=== PATIENT | female | born 1940 | race Caucasian/White ===

== ENCOUNTER 2017-08-05 12:02 | Observation (INO) | payer OTHER, MEDICAID ==
[2017-08-05] VITALS (9 sets, daily range): BP systolic 110–144; BP diastolic 60–82; PULSE 57–65; RESP 18–20; TEMP 96.9–97.4; O2SAT 95–99
[~2017-08-05] VITALS: Ht 167.6 cm; Wt 41.8 kg
[~2017-08-05 12:02] MED LIST: ADVA250A INH; ALBU6.7H INH; ASPI81 PO; CART240C4 PO; CITRTAB7 PO; DILT240C7 PO; GABA100C4 PO; IPRA0.02 INH; LEVO.125 PO; LISI-363 PO; METR-1 PO; MIRTA15 PO; PRAV20TA67 PO; TAB-TAB PO; VITA10002 PO; VITA100L SUCK-ON
--- NOTE | 2017-08-05 12:20 | PD ---
HPI Chief Complaint: Chest Pain Time Seen by Provider: 12:19 Travel History International Travel<30 days: No Contact w/Intl Traveler<30days: No Traveled to known affect area: No History of Present Illness HPI 77-year-old female came to the emergency room with history of substernal chest pain/discomfort radiating to left side of her chest under the breast for past 3 days. Patient says it is on and off. The pain is not severe but instead like a dull discomfort but enough to make her aware of its presence. She tried calling her mattress stripper office this morning but was told that mattress stripper is out of town. Patient decided to come to the emergency room. She says that she has been getting this discomfort frequently lately. She has not been evaluated for coronary artery disease. Vital signs were stable. Patient says currently she just has a little bit of tightness in her chest. No associated shortness of breath. Vital signs otherwise stable. Patient has never had history of coronary artery disease or any stents put in her bypass. She took one of 81 mg aspirin this morning. No aggravating or relieving factors identified. Patient has history of hypertension, cholesterol and prediabetes. [facility] Past Medical History Narrative Medical List of her past medical, surgical, social and family history reviewed from the nursing note Arthritis: Yes Asthma: Yes Anxiety: Yes Depression: Yes Heart Rhythm Problems: Yes (PALPITATIONS) Cancer: Yes (BREAST) Cardiac Catheterization: No Cardiovascular Problems: Yes High Cholesterol: Yes Chest Pain: Yes Congestive Heart Failure: No COPD: Yes Cerebrovascular Accident: No Coronary Artery Disease: Yes Diabetes: No Endocrine: No Gastrointestinal Disorders: Yes GERD: Yes Glaucoma: No Genitourinary: No Hepatitis: No Hiatal Hernia: No Hypertension: Yes Immune Disorder: No Musculoskeletal: Yes Neurologic: Yes Psychiatric: Yes Reproductive: No Respiratory: Yes Radiation Therapy: Yes Sleep Apnea: No Thyroid Disease: Yes PNEUMOCCOCAL Vaccine (Year): 1 : 3 Para: 2 Miscarriage: 1 Past Surgical History Abdominal Surgery: Yes (OPEN CHOLECYSTECTOMY, APPENDECTOMY) Appendectomy: Yes Cardiac Surgery: No Cholecystectomy: Yes Coronary Artery Bypass Graft: No Ear Surgery: No Endocrine Surgery: Yes Eye Surgery: No Genitourinary Surgery: No Gynecologic Surgery: Yes (HYSTERECTOMY) Hysterectomy: Yes Oral Surgery: No Pacemaker: No Thoracic Surgery: No Other Surgery: Yes Social History Alcohol Use: No Tobacco Use: No (QUIT 30 YRS) Substance Use: No Allergies-Medications (Allergen,Severity, Reaction): Coded Allergies: morphine (Unverified Allergy, Severe, rash, 09/25/16) Comments List of her allergies reviewed from the nursing note. Reported Meds & Prescriptions Reported Meds & Active Scripts Active Reported Levothyroxine (Levothyroxine Sodium) 100 Mcg Tab 100 Mcg PO DAILY Lisinopril-Hctz 20-12.5 Mg Tab 1 Tab PO DAILY Pravastatin 20 Mg Tab 20 Mg PO DAILY Diltiazem CD 24 HR 240 Mg Caper 240 Mg PO DAILY Aspirin 81 Mg Chew 81 Mg CHEW DAILY Pantoprazole (Pantoprazole Sodium) 40 Mg Tab 40 Mg PO DAILY Advair Diskus Inh (Fluticasone-Salmeterol Inh) 100-50 Mcg/Blist Aer 1 Puff INH BID Rinse mouth after use. Ipratropium Neb (Ipratropium [place]) 0.5 Mg/2.5 Ml Amp 0.5 Mg NEB Q6HR NEB PRN Proventil Hfa 6.7 GM Inh (Albuterol Sulfate) 90 Mcg/Act Aer 2 Puff INH Q6H PRN Narrative Medication List of her home medications reviewed from the nursing note. Review of Systems Except as stated in HPI: all other systems reviewed are Neg Cardiovascular: Positive: Chest Pain or Discomfort Physical Exam Narrative GENERAL: Awake, alert, no obvious distress, elderly SKIN: Focused skin assessment warm/dry. HEAD: Atraumatic. Normocephalic. EYES: Pupils equal and round. No scleral icterus. No injection or drainage. ENT: No nasal bleeding or discharge. Mucous membranes pink and moist. NECK: Trachea midline. No JVD. CARDIOVASCULAR: Regular rate and rhythm. No murmur appreciated. RESPIRATORY: No accessory muscle use. Clear to auscultation. Breath sounds equal bilaterally. GASTROINTESTINAL: Abdomen soft, non-tender, nondistended. Hepatic and splenic margins not palpable. MUSCULOSKELETAL: No obvious deformities. No clubbing. No cyanosis. No edema. NEUROLOGICAL: Awake and alert. No obvious cranial nerve deficits. Motor grossly within normal limits. Normal speech. PSYCHIATRIC: Appropriate mood and affect; insight and judgment normal. Data Data Last Documented VS Vital Signs Date Time Temp Pulse Resp B/P (MAP) Pulse Ox O2 Delivery O2 Flow Rate FiO2 08/05/17 13:00 20 98 Room Air 08/05/17 12:58 133/76 (95) 144/70 (94) 08/05/17 12:05 97.4 60 Orders Orders Electrocardiogram (08/05/17 12:41) Basic Metabolic Panel (Bmp) (08/05/17 12:41) Ckmb (Isoenzyme) Profile (08/05/17 12:41) Complete Blood Count With Diff (08/05/17 12:41) Magnesium (Mg) (08/05/17 12:41) Prothrombin Time / Inr (Pt) (08/05/17 12:41) Act Partial Throm Time (Ptt) (08/05/17 12:41) Troponin I (08/05/17 12:41) Ecg Monitoring (08/05/17 12:41) Bilateral Bp Monitoring (08/05/17 12:41) Iv Access Insert/Monitor (08/05/17 12:41) Oximetry (08/05/17 12:41) Oxygen Administration (08/05/17 12:41) Aspirin Chew (Aspirin Chew) (08/05/17 12:45) Sodium Chloride 0.9% Flush (Ns Flush) (08/05/17 12:45) Chest, Pa & Lat (08/05/17 12:41) Admit Order (Ed Use Only) (08/05/17 13:33) Labs Laboratory Tests Test 08/05/17 12:40 White Blood Count 6.2 TH/MM3 Red Blood Count 4.07 MIL/MM3 Hemoglobin 12.7 GM/DL Hematocrit 38.4 % Mean Corpuscular Volume 94.3 FL Mean Corpuscular Hemoglobin 31.3 PG Mean Corpuscular Hemoglobin Concent 33.2 % Red Cell Distribution Width 12.4 % Platelet Count 105 TH/MM3 Mean Platelet Volume 11.6 FL Neutrophils (%) (Auto) 63.7 % Lymphocytes (%) (Auto) 23.2 % Monocytes (%) (Auto) 8.7 % Eosinophils (%) (Auto) 3.3 % Basophils (%) (Auto) 1.1 % Neutrophils # (Auto) 4.0 TH/MM3 Lymphocytes # (Auto) 1.4 TH/MM3 Monocytes # (Auto) 0.5 TH/MM3 Eosinophils # (Auto) 0.2 TH/MM3 Basophils # (Auto) 0.1 TH/MM3 CBC Comment DIFF FINAL Differential Comment Prothrombin Time 10.4 SEC Prothromb Time International Ratio 1.0 RATIO Activated Partial Thromboplast Time 26.7 SEC Blood Urea Nitrogen 28 MG/DL Creatinine 1.20 MG/DL Random Glucose 97 MG/DL Calcium Level 9.0 MG/DL Magnesium Level 2.2 MG/DL Sodium Level 139 MEQ/L Potassium Level 3.4 MEQ/L Chloride Level 99 MEQ/L Carbon Dioxide Level 31.8 MEQ/L Anion Gap 8 MEQ/L Estimat Glomerular Filtration Rate 43 ML/MIN Total Creatine Kinase 59 U/L Troponin I LESS THAN 0.02 NG/ML MDM Medical Decision Making Medical Screen Exam Complete: Yes Emergency Medical Condition: Yes Medical Record Reviewed: Yes Interpretation(s) Twelve-lead EKG was reviewed by me. Normal sinus rhythm, low voltage, inferior T-wave inversions, questionable old anterior SC. Heart rate of 62 bpm. Differential Diagnosis ACS, non-STEMI, nonspecific chest pain. Narrative Course 1:16 PM patient was given 81 mg of aspirin. Awaiting for blood test results and chest x-ray. She will need chest pain admission to rule out ACS at the least. Procedures EKG Prior to Arrival: No Diagnosis Primary Impression: Chest pain Qualified Codes: R07.9 - Chest pain, unspecified Admitting Information Admitting Physician Requests: Observation Tricia Doty MD Aug 05, 2017 12:20
[2017-08-05] MEDS ORDERED: ASPIRIN 81 MG CHEW TAB PO ONE (12:45)
[2017-08-05] MEDS ORDERED: SODIUM CHLORIDE 0.9% FLUSH 10 ML FLUSH IVF PRN (12:45)
[2017-08-05 12:53] LABS: BASOPHIL # 0.1 TH/MM3 (0-0.2); BASOPHIL % 1.1 % (0.0-2.0); EOSINOPHIL # 0.2 TH/MM3 (0-0.4); EOSINOPHIL % 3.3 % (0.0-4.0); HEMATOCRIT 38.4 % (35.0-46.0); HEMOGLOBIN 12.7 GM/DL (11.6-15.3); LYMPH % 23.2 % (9.0-44.0); LYMPHOCYTE # 1.4 TH/MM3 (1.0-4.8); MEAN CELL VOLUME 94.3 FL (80.0-100.0); MEAN CORPUSCULAR HEMOGLOBIN 31.3 PG (27.0-34.0); MEAN CORPUSCULAR HGB CONC 33.2 % (32.0-36.0); MEAN PLATELET VOLUME 11.6 FL (7.0-11.0); MONO % 8.7 % (0.0-8.0); MONOCYTE # 0.5 TH/MM3 (0-0.9); NEUT % 63.7 % (16.0-70.0); PLATELET COUNT 105 TH/MM3 (150-450); RED BLOOD COUNT 4.07 MIL/MM3 (4.00-5.30); RED CELL DISTRIBUTION WIDTH 12.4 % (11.6-17.2); WHITE BLOOD COUNT 6.2 TH/MM3 (4.0-11.0)
[2017-08-05 13:01] LABS: CHLORIDE 99 MEQ/L (98-107); SODIUM (NA) 139 MEQ/L (136-145)
[2017-08-05 13:05] LABS: BICARBONATE 31.8 MEQ/L (21.0-32.0); BLOOD UREA NITROGEN 28 MG/DL (7-18); GLUCOSE,RANDOM 97 MG/DL (74-106); MAGNESIUM 2.2 MG/DL (1.5-2.5)
[2017-08-05 13:07] LABS: PROTHROMBIN TIME - PATIENT 10.4 SEC (9.8-11.6)
[2017-08-05 13:08] LABS: GLOMERULAR FILTRATION RATE 43 ML/MIN (>89)
[2017-08-05 13:13] LABS: TROPONIN I LESS THAN 0.02 NG/ML (0.02-0.05)
[2017-08-05] MEDS ORDERED: ONDANSETRON HCL 4 MG/2 ML VIAL IV PUSH PRN (14:00)
[2017-08-05] MEDS ORDERED: NITROGLYCERIN 0.4 MG SL 25 TABS/BTL SL PRN (14:00)
[2017-08-05] MEDS ORDERED: ACETAMINOPHEN 500 MG CPLT PO PRN (14:00)
[2017-08-05] MEDS ORDERED: SODIUM CHLORIDE 0.9% FLUSH 10 ML FLUSH IV FLUSH PRN (14:00)
--- NOTE | 2017-08-05 14:00 | RADRPT ---
EXAM DATE: 08/05/2017 1:46 PM EDT AGE/SEX: 77 years / Female INDICATIONS: Tightness in chest. CLINICAL DATA: This is the patient's initial encounter. Patient reports that signs and symptoms have been present for 2 days and indicates a pain score of 0/10. MEDICAL/SURGICAL HISTORY: Carcinoma, breast. Emphysema. Chronic obstructive pulmonary disease . Hypertension. Appendectomy. Cholecystectomy. Hysterectomy. COMPARISON: No prior exams available for comparison. FINDINGS: Marked hyperinflation. No infiltrate or congestive failure. No pneumothorax. Mild thoracolumbar scoli osis. CONCLUSION: Marked hyperinflation. Electronically signed by: Jason Bourgeois MD 08/05/2017 1:59 PM EDT
[2017-08-05] MEDS ORDERED: IPRA0.02 NEB (14:12)
[2017-08-05] MEDS ORDERED: DILT240C44 PO (14:12)
[2017-08-05] MEDS ORDERED: LEVO100T5 PO (14:12)
[2017-08-05] MEDS ORDERED: LISI20TA PO (14:12)
[2017-08-05] MEDS ORDERED: ADVA100A INH (14:12)
[2017-08-05] MEDS ORDERED: PRAV20TA2 PO (14:12)
[2017-08-05] MEDS ORDERED: ASPI-516 CHEW (14:12)
[2017-08-05] MEDS ORDERED: PANT40TA3 PO (14:12)
[2017-08-05] MEDS ORDERED: ALBU6.7H INH (14:12)
--- NOTE | 2017-08-05 15:15 | EKG ---
Date Performed: 08/05/2017 Time Performed: 12:12:39 PTAGE: 77 years EKG: Sinus rhythm WITH SINUS ARRHYTHMIA ANTEROSEPTAL MYOCARDIAL INFARCTION ABNORMAL ECG No significant change from lorin or electrocardiogram. PREVIOUS TRACING : 12/30/2013 00.29 DOCTOR: Sebastián Ramsay Interpretating Date/Time 08/05/2017 15:14:17
[2017-08-05 16:28] LABS: TROPONIN I LESS THAN 0.02 NG/ML (0.02-0.05)
--- NOTE | 2017-08-05 16:48 | HHI.HP ---
[facility] aRjni Patel, DO Admission Diagnosis Chest pain, rule out ACS Diagnoses: (1) Chest pain Diagnosis: Principal Chief Complaint: Chest pain Travel History International Travel<30 Days: No Contact w/Intl Traveler <30 Da: No Traveled to Known Affected Are: No History of Present Illness 77-year-old female known history of hypertension, hyperkalemia, chronic obstructive pulmonary disease, hypothyroidism, gastroesophageal reflux who presented to hospital because of chest pain. Patient states that her chest pain started on Saturday which was 3 days ago. She states that it is described as a tightness type discomfort in her chest without any radiation to the neck, back, shoulder, arm. Patient states that the pain has been persistent since Saturday on a scale of 6/10 with episodic worsening to a 8/10. It is not worsened with exertion. Is not improved with rest. He denied any nausea, vomiting, shortness of breath, dizziness. Patient does follow up with Dr. Langford. She did try to call Dr. Langford's office today however she is out of town. The office told her to go to the emergency department for evaluation. Patient had workup done emergency department and was essentially unremarkable in the ER physician recommend the patient be observed in the chest pain center. Patient has had previous cardiac workup with cardiac stress test done in 2013 at that time patient had unremarkable myocardial perfusion study with low risk. Review of Systems Cardiovascular: COMPLAINS OF: Chest pain Except as stated in HPI: all other systems reviewed are Neg Past Family Social History Past Medical History Hypertension Hyperlipidemia History of tobacco use Chronic obstructive pulmonary disease Chronic back pain Hypothyroidism History myocardial infarction Coronary artery disease History of breast cancer status post lumpectomy and radiation Anxiety/depression History of bowel obstruction Past Surgical History Right breast lumpectomy Surgery for bowel obstruction Cholecystectomy Appendectomy Total hysterectomy Tonsillectomy Reported Medications Reported Meds & Active Scripts Active Reported Levothyroxine (Levothyroxine Sodium) 100 Mcg Tab 100 Mcg PO DAILY Lisinopril-Hctz 20-12.5 Mg Tab 1 Tab PO DAILY Pravastatin 20 Mg Tab 20 Mg PO DAILY Diltiazem CD 24 HR 240 Mg Caper 240 Mg PO DAILY Aspirin 81 Mg Chew 81 Mg CHEW DAILY Pantoprazole (Pantoprazole Sodium) 40 Mg Tab 40 Mg PO DAILY Advair Diskus Inh (Fluticasone-Salmeterol Inh) 100-50 Mcg/Blist Aer 1 Puff INH BID Rinse mouth after use. Ipratropium Neb (Ipratropium [place]) 0.5 Mg/2.5 Ml Amp 0.5 Mg NEB Q6HR NEB PRN Proventil Hfa 6.7 GM Inh (Albuterol Sulfate) 90 Mcg/Act Aer 2 Puff INH Q6H PRN Allergies: Coded Allergies: morphine (Unverified Allergy, Severe, rash, 09/25/16) Family History Reviewed and significant for heart disease with mother having myocardial infarction, father with aneurysm Social History Patient quit smoking over 30 years ago, she does have a [id number] history. She denies any alcohol or illicit drugs Physical Exam Vital Signs Vital Signs Date Time Temp Pulse Resp B/P (MAP) Pulse Ox O2 Delivery O2 Flow Rate FiO2 08/05/17 13:00 20 98 Room Air 08/05/17 12:58 133/76 (95) 144/70 (94) 08/05/17 12:57 99 Room Air 08/05/17 12:55 99 Room Air 08/05/17 12:05 97.4 60 20 144/82 (102) 99 Physical Exam GENERAL: Well-developed, well-nourished, in no acute distress. alert and orientated HEENT: Head is normocephalic without any lesions or masses noted. Facial features are symmetric. Eyes: Pupils equal round reactive to light. Extraocular muscles are intact. Conjunctivae were clear. Oropharyngeal: Pharynx without any erythema edema. Tongue is midline without deviation. Buccal mucosa is moist without any masses or lesions NECK: Supple without any masses. Trachea midline no deviation. No JVD, no bruits are appreciated CARDIAC: Regular rhythm, regular rate. S1/S2 are heard. No murmurs gallops or rubs. LUNGS: Clear to auscultation bilaterally. No wheeze, rhonchi or rales. No use of accessory muscles on inspiration or expiration. ABDOMEN: Soft, nontender. Nondistended. Bowel sounds heard in all 4 quadrants. No organomegaly or masses. Negative rebound, negative guarding EXTREMITIES: No edema, pulses are equal bilaterally. No cyanosis or clubbing NEUROLOGY: Mood and affect appear appropriate. Cranial nerves II through XII grossly intact. Muscle strength 5/5 in upper and lower extremities bilaterally. Deep tendon reflexes are 2+ in upper and lower extremities bilaterally. Laboratory Laboratory Tests Test 08/05/17 12:40 08/05/17 15:55 White Blood Count 6.2 Red Blood Count 4.07 Hemoglobin 12.7 Hematocrit 38.4 Mean Corpuscular Volume 94.3 Mean Corpuscular Hemoglobin 31.3 Mean Corpuscular Hemoglobin Concent 33.2 Red Cell Distribution Width 12.4 Platelet Count 105 Mean Platelet Volume 11.6 Neutrophils (%) (Auto) 63.7 Lymphocytes (%) (Auto) 23.2 Monocytes (%) (Auto) 8.7 Eosinophils (%) (Auto) 3.3 Basophils (%) (Auto) 1.1 Neutrophils # (Auto) 4.0 Lymphocytes # (Auto) 1.4 Monocytes # (Auto) 0.5 Eosinophils # (Auto) 0.2 Basophils # (Auto) 0.1 CBC Comment DIFF FINAL Differential Comment Prothrombin Time 10.4 Prothromb Time International Ratio 1.0 Activated Partial Thromboplast Time 26.7 Blood Urea Nitrogen 28 Creatinine 1.20 Random Glucose 97 Calcium Level 9.0 Magnesium Level 2.2 Sodium Level 139 Potassium Level 3.4 Chloride Level 99 Carbon Dioxide Level 31.8 Anion Gap 8 Estimat Glomerular Filtration Rate 43 Total Creatine Kinase 59 52 Troponin I LESS THAN 0.02 LESS THAN 0.02 Result Diagram: 08/05/17 1240 08/05/17 1240 Imaging Last Impressions Chest X-Ray 08/05/17 1241 Signed Impressions: CONCLUSION: Marked hyperinflation. Caprini VTE Risk Assessment Caprini VTE Risk Assessment: Mod/High Risk (score >= 2) Caprini Risk Assessment Model Point Value = 1 Point Value = 2 Point Value = 3 Point Value = 5 Age 41-60 Minor surgery BMI > 25 kg/m2 Swollen legs Varicose veins or History of unexplained or recurrent spontaneous Oral contraceptives or hormone replacement Sepsis (< 1 month) Serious lung disease, including pneumonia (< 1 month) Abnormal pulmonary function Acute myocardial infarction Congestive heart failure (< 1 month) History of inflammatory bowel disease Medical patient at bed rest Age 61-74 Arthroscopic surgery Major open surgery (> 45 min) Laparoscopic surgery (> 45 min) Malignancy Confined to bed (> 72 hours) Immobilizing plaster cast Central venous access Age >= 75 History of VTE Family history of VTE Factor V Leiden Prothrombin [id number] Lupus anticoagulant Anticardiolipin antibodies Elevated serum homocysteine Heparin-induced thrombocytopenia Other congenital or acquired thrombophilia Stroke (< 1 month) Elective arthroplasty Hip, pelvis, or leg fracture Acute spinal cord injury (< 1 month) Prophylaxis Regimen Total Risk Factor Score Risk Level Prophylaxis Regimen 0-1 Low Early ambulation 2 Moderate Order ONE of the following: *Sequential Compression Device (SCD) *Heparin 5000 units SQ BID 3-4 Higher Order ONE of the following medications: *Heparin 5000 units SQ TID *Enoxaparin/Lovenox 40 mg SQ daily (WT < 150 kg, CrCl > 30 mL/min) *Enoxaparin/Lovenox 30 mg SQ daily (WT < 150 kg, CrCl > 10-29 mL/min) *Enoxaparin/Lovenox 30 mg SQ BID (WT < 150 kg, CrCl > 30 mL/min) AND/OR *Sequential Compression Device (SCD) 5 or more Highest Order ONE of the following medications: *Heparin 5000 units SQ TID (Preferred with Epidurals) *Enoxaparin/Lovenox 40 mg SQ daily (WT < 150 kg, CrCl > 30 mL/min) *Enoxaparin/Lovenox 30 mg SQ daily (WT < 150 kg, CrCl > 10-29 mL/min) *Enoxaparin/Lovenox 30 mg SQ BID (WT < 150 kg, CrCl > 30 mL/min) AND *Sequential Compression Device (SCD) Assessment and Plan Assessment and Plan Atypical chest pain -Patient does have increased risk factors to include age, female without exogenous hormones, hypertension, hyper lipidemia, coronary artery disease, family history of heart disease, history of tobacco use -We will continue ruled the patient out for acute coronary event with serial cardiac enzymes which thus far are negative -Serial EKGs are reviewed by myself does indicate sinus rhythm with sinus arrhythmia without any change from previous EKG from 2013 -We will pursue myocardial perfusion study to rule out any underlying ischemia -Continue aspirin -Continue monitoring telemetry Hypertension, hypovolemia, coronary artery disease -Continue home medications Chronic obstructive pulmonary disease -May use O2 to maintain O2 sats greater than 80% -Duo nebs as needed Hypothyroidism -Replacement therapy has been continued DVT prevention -Sequential compression devices Problem Qualifiers (1) Chest pain: Qualified Codes: R07.9 - Chest pain, unspecified Lukasz Oakley Aug 05, 2017 16:48
[2017-08-05 19:30] LABS: TROPONIN I LESS THAN 0.02 NG/ML (0.02-0.05)
[2017-08-05] MEDS: RESP: ALBUTEROL 2.5 MG/IPRATROPIUM 0.5 MG NEB (PRN) NEB (19:55)
[2017-08-05] MEDS ORDERED: PRAVASTATIN SOD 20 MG TAB PO SCH (21:00)
--- NOTE | 2017-08-05 21:21 | EKG ---
Date Performed: 08/05/2017 Time Performed: 18:55:09 PTAGE: 77 years EKG: Baseline artifact present SINUS BRADYCARDIA WITH FIRST DEGREE AV BLOCK ANTEROSEPTAL MYOCARD IAL INFARCTION ABNORMAL ECG No significant change from prior electrocardiogram. PREVIOUS TRACING : 08/05/2017 15.52 DOCTOR: Sebastián Ramsay Interpretating Date/Time 08/05/2017 21:21:11
--- NOTE | 2017-08-05 21:28 | EKG ---
Date Performed: 08/05/2017 Time Performed: 15:52:35 PTAGE: 77 years EKG: Baseline artifact present Sinus rhythm POSSIBLE SEPTAL MYOCARDIAL INFARCTION ABNORMAL ECG No significant change from prior electrocardiogra m. PREVIOUS TRACING : 08/05/2017 12.12 DOCTOR: Sebastián Ramsay Interpretating Date/Time 08/05/2017 21:28:05
[2017-08-05] MEDS ORDERED: ALUMINUM/MAGNESIUM/SIMETH 30 ML CUP PO PRN (21:30)
[2017-08-05] MEDS: SODIUM CHLORIDE 0.9% FLUSH 10 ML FLUSH IV FLUSH SCH (22:06)
[2017-08-06] VITALS: BP 111/67; PULSE 60; RESP 18; TEMP 96.5; O2SAT 93
[2017-08-06] MEDS: RESP: ALBUTEROL 2.5 MG/IPRATROPIUM 0.5 MG NEB (PRN) NEB (02:35)
[2017-08-06 04:00] VITALS: BP 123/56; PULSE 64; RESP 18; TEMP 96.8; O2SAT 96
[2017-08-06] MEDS ORDERED: LEVOTHYROXINE SODIUM 100 MCG TAB PO SCH (06:00)
[2017-08-06 07:30] VITALS: BP 118/65; PULSE 59; RESP 20; TEMP 96.5; O2SAT 96
[2017-08-06 08:40] VITALS: O2SAT 94
[2017-08-06] MEDS ORDERED: PANTOPRAZOLE SOD 40 MG DELAYED RELEASE TAB PO SCH (09:00)
[2017-08-06] MEDS ORDERED: DILTIAZEM-CD 240 MG CAP ER PO SCH (09:00)
[2017-08-06] MEDS ORDERED: LISINOPRIL 20 MG TAB PO SCH (09:00)
[2017-08-06] MEDS ORDERED: PRAVASTATIN SOD 20 MG TAB PO SCH (09:00)
[2017-08-06] MEDS ORDERED: NON-FORMULARY DRUG (Lisinopril-Hctz 1 TAB) PO SCH (09:00)
[2017-08-06] MEDS ORDERED: ASPIRIN 325 MG TAB PO SCH (09:00)
[2017-08-06] MEDS ORDERED: HYDROCHLOROTHIAZIDE 25 MG TAB PO SCH (09:00)
--- NOTE | 2017-08-06 09:19 | HHI.PR ---
Subjective Remarks Follow-up chest pain. Patient seen and examined, lying in bed comfortably in no apparent distress. Status post Lexiscan. Results reviewed with patient, no ischemia present on test. EF normal. Patient will be allowed to eat and discharge home. All symptoms have resolved. Denies any further chest pain. Denies any shortness of breath. Vital signs stable. Afebrile. Follow-up with PCP cardiology. Objective Vitals Vital Signs Date Time Temp Pulse Resp B/P (MAP) Pulse Ox O2 Delivery O2 Flow Rate FiO2 08/06/17 08:40 94 21 08/06/17 07:30 96.5 59 20 118/65 (82) 96 08/06/17 04:00 96.8 64 18 123/56 (78) 96 08/06/17 00:00 96.5 60 18 111/67 (82) 93 08/05/17 20:55 61 08/05/17 20:00 96.9 58 18 110/60 (77) 96 08/05/17 19:55 97 21 08/05/17 18:00 97.2 65 18 118/62 (80) 95 08/05/17 18:00 97.2 65 18 118/62 (80) 95 08/05/17 17:34 98 21 08/05/17 17:24 57 08/05/17 13:00 20 98 Room Air 08/05/17 12:58 133/76 (95) 144/70 (94) 08/05/17 12:57 99 Room Air 08/05/17 12:55 99 Room Air 08/05/17 12:05 97.4 60 20 144/82 (102) 99 I/O 08/05/17 08/05/17 08/05/17 08/06/17 08/06/17 08/06/17 07:00 15:00 23:00 07:00 15:00 23:00 Intake Total 160 ml 485 ml Balance 160 ml 485 ml Intake Oral 160 ml 485 ml # Voids 4 Result Diagram: 08/05/17 1240 08/05/17 1240 Imaging Last Impressions Myocardial Perfusion Scan Nuc Med 08/06/17 0600 Signed Impressions: CONCLUSION: Negative examination. Chest X-Ray 08/05/17 1241 Signed Impressions: CONCLUSION: Marked hyperinflation. Objective Remarks GENERAL: Well-developed, thin elderly female patient in NAD. SKIN: Warm and dry. No rash. HEAD: Normocephalic. Atraumatic. EYES: Pupils equal and round. No scleral icterus. No injection or drainage. ENT: No nasal bleeding or discharge. Mucous membranes pink and moist. NECK: Supple. Trachea midline. CARDIOVASCULAR: Regular rate and rhythm. S1, S2 noted. No murmur appreciated. No chest pain to palpation RESPIRATORY: No accessory muscle use. Clear to auscultation. Breath sounds equal bilaterally. GASTROINTESTINAL: Abdomen soft, non-tender, nondistended. Normoactive bowel sounds x4. MUSCULOSKELETAL: No obvious deformities. Extremities without clubbing, cyanosis , or edema. NEUROLOGICAL: Awake and alert. No obvious cranial nerve deficits. Motor grossly within normal limits. 5/5 muscle strength in bilateral upper and lower extremities. Normal speech. PSYCHIATRIC: Appropriate mood and affect; insight and judgment normal. A/P Problem List: (1) Chest pain ICD Code: R07.9 - Chest pain Status: Acute Assessment and Plan Atypical chest pain -Patient does have increased risk factors to include age, female without exogenous hormones, hypertension, hyper lipidemia, coronary artery disease, family history of heart disease, history of tobacco use -ACS ruled out with serial cardiac enzymes. -Serial EKGs reviewed does indicate sinus rhythm with sinus arrhythmia without any change from previous EKG from 2014. -Patient underwent myocardial perfusion scan, results reviewed showing EF of 70% . No ischemia. Patient will follow up with PCP and cardiology. All symptoms have resolved. -Continue aspirin -Laboratory reviewed overnight, no arrhythmias. -Patient is stable at this time and agreeable to the plan. Hypertension, hypovolemia, coronary artery disease -Continue home medications Chronic obstructive pulmonary disease, not in exacerbation -Duo nebs as needed Hypothyroidism -Replacement therapy has been continued DVT prevention -Sequential compression devices Discharge patient to home. Condition on discharge: Improved. Heart healthy regular Diet as tolerated. Ad Bushra activity. Rx written: Please see discharge instructions. Follow-up with primary care physician. Problem Qualifiers (1) Chest pain: Qualified Codes: R07.9 - Chest pain, unspecified Livia Pruett PRISCILA Aug 06, 2017 09:19
--- NOTE | 2017-08-06 10:33 | RADRPT ---
EXAM DATE: 08/06/2017 10:19 AM EDT AGE/SEX: 77 years / Female INDICATIONS:Angina. Myocardial infarction Substernal chest pain radiating to the left side. CLINICAL DATA: This is the patient's initial encounter. Patient reports that signs and symptoms have been present for 3 days and indicates a pain score of 2/10. MEDICAL/SURGICAL HISTORY: Hypercholesterolemia. Hypertension. Chronic obstructive pulmonary d isease. Appendectomy. Cholecystectomy. Hysterectomy. COMPARISON: No prior exams available for comparison. DOSE: 27.3 mCi Tc 99m Myoview at stress 8.8 mCi [id number] at rest 0.4 mg Lexiscan STRESS SYMPTOMS: Numbness and headache. EJECTION FRACTION: > 70 % TECHNIQUE: The patient underwent pharmacologic stress with infusion of prescribed dose. Continuous ECG tracing was monitored during stress. Gated SPECT imaging was performed after stress and conventi onal SPECT imaging was performed at rest. The examination was performed on a SPECT/CT scanner, both attenuation and non-corrected datasets were reviewed. FINDINGS: Distribution: The maximum perfused segment at stress is in the anteroseptal wall. Perfusion Study: The pattern of perfusion at stress is within normal limits. Gated Study: There are intact wall motion and wall thickening without hypokinetic or dyskinetic segm ents. The ejection fraction is calculated at > 70%. RISK CATEGORY: Low (<1% Annual Motality Rate) CONCLUSION: Negative examination. Electronically signed by: Cuate Vallejo MD 08/06/2017 10:31 AM EDT
--- NOTE | 2017-08-06 10:58 | HHI.DCPOC ---
Discharge Care Plan Diagnosis: (1) Chest pain (2) Hypertension (3) Hypothyroidism (4) Hyperlipidemia (5) COPD (chronic obstructive pulmonary disease) Goals to Promote Your Health * To prevent worsening of your condition and complications * To maintain your health at the optimal level Directions to Meet Your Goals Take your medications as prescribed Follow your dietary instruction Follow activity as directed Keep your appointments as scheduled Take your immunizations and boosters as scheduled If your symptoms worsen call your PCP, if no PCP go to Urgent Care Center or Emergency Room Smoking is Dangerous to Your Health. Avoid second hand smoke Call the 24-hour hour crisis hotline for domestic abuse at Livia Pruett Aug 06, 2017 10:58
[2017-08-06 11:18] VITALS: BP 122/69; PULSE 91; RESP 20; TEMP 96.6; O2SAT 96
[2017-08-06] MEDS: SODIUM CHLORIDE 0.9% FLUSH 10 ML FLUSH IV FLUSH SCH (12:01)
[2017-08-06] MEDS ORDERED: REGADENOSON INJ 0.4 MG/5 ML SYR IV ONE (13:35)
--- NOTE | 2017-08-06 16:49 | TR ---
Date Performed: 08/06/2017 Time Performed: 09:33:24 DOCTOR: Kang Peters DRUG LIST: CLINICAL HISTORY: REASON FOR TEST: Chest pain REASON FOR ENDING: OBSERVATION: CONCLUSION: COMMENTS: Lexiscan stress test was performed under standard four minute protocol. Radionuclide was injected one minute prior to ending the test. No electrocardiographic abormalities were present t o suggest ischemia. Nuclear imaging and interpretation are pending.
== END 2017-08-06 14:00 | disposition home or self-care (01) ==
LOC: PHED 12:02 → PHEDA 13:34 → PH3B 14:35
PROVIDERS: ADMIT Hospitalist; ATTEND Hospitalist
DX: R07.9 Chest pain, unspecified (principal); I10 Essential (primary) hypertension; I25.10 Atherosclerotic heart disease of native coronary artery without angina pectoris; J44.9 Chronic obstructive pulmonary disease, unspecified; E78.5 Hyperlipidemia, unspecified; E86.1 Hypovolemia; E03.9 Hypothyroidism, unspecified; E78.00 Pure hypercholesterolemia, unspecified; K21.9 Gastro-esophageal reflux disease without esophagitis; I25.2 Old myocardial infarction; Z85.3 Personal history of malignant neoplasm of breast; Z90.710 Acquired absence of both cervix and uterus; Z92.3 Personal history of irradiation; Z87.891 Personal history of nicotine dependence; Z82.49 Family history of ischemic heart disease and other diseases of the circulatory system
CPT/HCPCS: 71046; 78452; 80048; 82550; 83735; 84484; 85025; 85610; 85730; 93005; 93017; 94640; 94664; 99285; A9502; G0378; J2785

== ENCOUNTER 2017-09-28 17:44 | Observation (INO) ==
[2017-09-28] MEDS ORDERED: Sod Chloride 0.9% Inj 1,000 ML IV.SIG ONE (18:51)
--- NOTE | 2017-09-28 19:00 | ED ---
HPI General Chief complaint: Weakness Stated complaint: weakness/head foggy/ off balance Source: patient Mode of arrival: ambulatory Limitations: no limitations History of Present Illness Complaint: generalized weakness Onset (ago): day(s) (1) Duration: constant Location: generalized Severity scale (1-10): 7 Relieving factors: none Exacerbating factors: none Associated symptoms: headaches, nausea/vomiting (nausea without vomiting) and other (feels foggy and off balance) Related Data Home Medications Medication Instructions Recorded Confirmed albuterol sulfate 2 puff INHALATION Q4-6H PRN 09/28/17 09/28/17 aspirin 09/28/17 09/28/17 diltiazem HCl 240 mg PO DAILY 09/28/17 09/28/17 Allergies Allergy/AdvReac Type Severity Reaction Status Date / Time morphine Allergy Severe rash Unverified 09/28/17 17:50 Review of Systems ROS: all other systems reviewed are negative [facility] Medical History Medical History Asthma (Acute) H/O: hysterectomy (Acute) Heart attack (Acute) Hypertension (Acute) Surgical History Surgical History S/P breast lumpectomy (Acute) S/P cholecystectomy (Acute) Social History Social History Substance History: No History of Abuse Smoking Status: Former smoker How Often Do You Have a Drink Containing Alcohol: Never Recent Travel in [facility] within the Last 8 Weeks: No Recent Out of Country Travel within the Last 8 Weeks: No Immunization History Tetanus Immunization: Unsure Hx Influenza Vaccine This Season: Yes Exam Const General: cooperative, healthy appearing, comfortable, no acute distress, well developed and well groomed Orientation: alert, awake and oriented x3 HENMT Head: normal to inspection, normocephalic and atraumatic Mouth: moist mucous membranes abnormal (dry) Teeth and gingiva: dentures Eyes Alignment and Position: alignment normal Conjunctivae: conjunctivae normal Sclera: sclerae normal EOM: EOM intact bilaterally Neck Neck: normal visual inspection and full ROM Chest Chest: normal inspection of the chest Resp Effort & Inspection: normal respiratory effort and able to speak in complete sentences Auscultation: clear to auscultation bilaterally Cardio Rate: regular rate Rhythm: regular rhythm GI Inspection: normal to inspection Palpation: soft and tender suprapubicly Back/Spine/Pelvis Cervical Spine: cervical ROM normal Thoracic/Lumbar Spine: thoraco-lumbar ROM normal Skin General: no rashes or lesions noted, turgor normal, atrophy and dry skin Neuro General: alert, awake, oriented x3, moves all extremities and CN's II-XI intact bilaterally Coordination: ajcqel-kv-[id number] test normal Extrem General: normal to inspection and full ROM Psych Appearance: grossly normal Mental Status: mental status grossly normal Speech and Movement: speech and movement normal Mood: congruent mood Affect: normal affect Attitude: cooperative Thought Process: normal Thought Content: normal Judgment: judgment good Course Consultations Consultation #1: Dr. Degroot Time: 21:14 Initial Documented Vital Signs Temperature 97.6 F 09/28/17 17:50 Pulse Rate 70 09/28/17 17:50 Respiratory Rate 22 09/28/17 17:50 Blood Pressure 163/84 H 09/28/17 17:50 Pulse Oximetry 93 L 09/28/17 17:50 Last Documented Vital Signs Temperature 97.6 F 09/28/17 17:50 Pulse Rate 76 09/28/17 20:06 Respiratory Rate 16 09/28/17 20:06 Blood Pressure 146/76 H 09/28/17 20:06 Pulse Oximetry 96 09/28/17 21:07 Medical Decision Making MDM Narrative Medical decision making narrative: This patient presents complaining with headache, feeling foggy, feeling off balance and feeling weak. All of her symptoms started yesterday. Her examination is remarkable for dry mucous membranes. She also has some suprapubic tenderness. Her neurological exam is intact. She is being treated with IV fluids and IV Compazine and Benadryl. Workup will include a cardiac evaluation, CT of her head, urinalysis and basic blood work. Workup reveals a sodium of 122 which is different from usual for her. She also has a urinary tract infection. I will request an observation admission for her. Medical Screen Exam Complete: Yes Emergency Medical Condition: Yes Medical Records Medical records reviewed: Yes I reviewed the patient's medical records. The patient states that her only significant medical problem is asthma and emphysema but her records reveal that she has had previous breast cancer as well as hypertension, hypothyroidism and coronary artery disease. She did have a normal stress test within the last couple of months. Lab Data Lab results reviewed: Yes I reviewed the patient's lab results. Result diagrams: 09/28/17 19:30 09/28/17 19:30 Lab Results 09/28/17 09/28/17 09/28/17 Range/Units 19:30 19:30 19:55 CBC w Diff Slide review pending WBC 5.3 (4.0-11.0) th/mm3 RBC 3.88 L (4.00-5.30) mil/mm3 Hgb 12.3 (11.6-15.3) gm/dL Hct 36.7 (35.0-46.0) % MCV 94.7 (80.0-100.0) fL MCH 31.8 (27.0-34.0) pg MCHC 33.6 (32.0-36.0) % RDW 11.9 (11.6-17.2) % Plt Count 99 L (150-450) th/mm3 MPV 11.3 H (7.0-11.0) fL Neut % (Auto) 69.6 (16.0-70.0) % Lymph % (Auto) 19.1 (9.0-44.0) % [place] % (Auto) 8.4 H (0.0-8.0) % Eos % (Auto) 1.7 (0.0-4.0) % Baso % (Auto) 1.2 (0.0-2.0) % Neut # (Auto) 3.7 (1.8-7.7) th/mm3 Lymph # (Auto) 1.0 (1.0-4.8) th/mm3 [place] # (Auto) 0.4 (0.0-0.9) th/mm3 Eos # (Auto) 0.1 (0.0-0.4) th/mm3 Baso # (Auto) 0.1 (0.0-0.2) th/mm3 WBC Differential . Diff Scan Auto diff confirmed Differential Comment . Platelet Estimate Low L (Normal) Platelet Morphology Enlarged H (Normal) Sodium 122 L* (136-145) meq/L Potassium 3.6 (3.5-5.1) meq/L Chloride 84 L (98-107) meq/L Carbon Dioxide 28.7 (21.0-32.0) meq/L Anion Gap 9 (5-15) meq/L BUN 17 (7-18) mg/dL Creatinine 1.10 H (0.50-1.00) mg/dL Estimated GFR 48 L (>89) mL/min Random Glucose 93 (74-106) mg/dL Calcium 8.1 L (8.5-10.1) mg/dL Troponin I Less than 0.02 L (0.02-0.05) ng/mL Urine Color Yellow (Yellw/Straw) Urine Clarity Clear (Clear) Urine pH 6.0 (5.0-8.5) Ur Specific [place] 1.020 (1.002-1.035) Urine Protein Negative (Neg-Trace) mg/dL Urine Glucose (UA) Negative (Negative) mg/dL Urine Ketones Trace H (Negative) mg/dL Urine Occult Blood Negative (Negative) Urine Nitrate Negative (Negative) Urine Bilirubin Negative (Negative) Urine Urobilinogen 0.2 (Less than 2) mg/dL Ur Leukocyte Esterase Large H (Negative) Urine RBC 0-3 (0-3) /hpf Urine WBC 9-20 H (0-5) /hpf Urine WBC Clumps Few H (None) Ur Squamous Epith Cells 0-5 (0-5) /hpf Ur Renal Epithelial Cell 1-5 H (None) /hpf Amorphous Sediment Few H (None) /hpf Urine Bacteria Occasional H (None) /hpf Micro UA Comment Culture indicated Urine Culture Comments Culture indicated Imaging Data Radiologist's impression: Head CT 09/28/17 18:51 CONCLUSION: 1. Negative noncontrast CT brain. . ECG Data EKG Prior to Arrival: No Attestation: I personally reviewed and interpreted this ECG as follows: (EKG shows sinus rhythm with rate of 61. Low voltage. No acute STT wave changes.) Discharge Plan Discharge Disposition Patient Disposition: 30 Still Patient Discharge Details Diagnosis: Weakness, Hyponatremia, Urinary tract infection Physicians Team ED Provider: Sarita Galvez Primary Care Provider: Rajni Patel Rxs /Orders / Referrals /Forms Prescriptions: No Action aspirin 81 mg Tablet,Chewable RF: 0 albuterol sulfate 90 mcg/actuation Hfa Aerosol Inhaler 2 puff INHALATION Q4-6H PRN (Reason: Pain (Scale Score 1-3)) RF: 0 diltiazem HCl 240 mg Capsule,Extended Release 24 Hr 240 mg PO DAILY RF: 0 Status ED Status: Pending Admission
[2017-09-28 19:41] LABS: Baso # (Auto) 0.1 th/mm3 (0.0-0.2); Baso % (Auto) 1.2 % (0.0-2.0); Eos # (Auto) 0.1 th/mm3 (0.0-0.4); Eos % (Auto) 1.7 % (0.0-4.0); Hematocrit 36.7 % (35.0-46.0); Hemoglobin 12.3 gm/dL (11.6-15.3); Lymph % (Auto) 19.1 % (9.0-44.0); Mean Corpuscular HGB Conc 33.6 % (32.0-36.0); Mean Corpuscular Hemoglobin 31.8 pg (27.0-34.0); Mean Corpuscular Volume 94.7 fL (80.0-100.0); Mean Platelet Volume 11.3 fL (7.0-11.0); Mono # (Auto) 0.4 th/mm3 (0.0-0.9); Mono % (Auto) 8.4 % (0.0-8.0); Neut # (Auto) 3.7 th/mm3 (1.8-7.7); Neut % (Auto) 69.6 % (16.0-70.0); Platelet Count 99 th/mm3 (150-450); Red Blood Count 3.88 mil/mm3 (4.00-5.30); Red Cell Distribution Width 11.9 % (11.6-17.2); White Blood Count 5.3 th/mm3 (4.0-11.0)
--- NOTE | 2017-09-28 19:41 | CT ---
EXAM DATE: 09/28/2017 7:37 PM EDT AGE/SEX: 77 years / Female INDICATIONS: Cephalgia, weakness, and dizziness. CLINICAL DATA: This is the patient's initial encounter. Patient reports that signs and symptoms have been present for 1 day and indicates a pain score of 2/10. MEDICAL/SURGICAL HISTORY: Asthma. Hypertension. Cholecystectomy. Hysterectomy. Lumpectomy. RADIATION DOSE: 48.59 CTDI (mGy) COMPARISON: No prior exams available for comparison. TECHNIQUE: CT of the head without contrast. Using automated exposure control and adjustment of the mA and/or kV according to patient size, radiation dose was kept as low as reasonably achievable to ob tain optimal diagnostic quality images. DICOM format image data is available electronically for revi ew and comparison. FINDINGS: Cerebrum: The ventricles are normal for age. No evidence of midline shift, mass lesion, hemorrhage or acute infarction. No extraaxial fluid collections are seen. Posterior Fossa: The cerebellum and brainstem are intact. The 4th ventricle is midline. The cerebe llopontine angle is unremarkable. Extracranial: The visualized portion of the orbits is intact. Skull: The calvaria is intact. No evidence of skull fracture. CONCLUSION: 1. Negative noncontrast CT brain. . Electronically signed by: Juan Gurrola MD 09/28/2017 7:39 PM EDT
[2017-09-28 20:07] LABS: Bilirubin,Urine Negative (Negative); Clarity,Urine Clear (Clear); Color,Urine Yellow (Yellw/Straw); Glucose,Urine (UA) Negative (Negative); Leukocyte Esterase,Urine Large (Negative); Nitrite,Urine Negative (Negative); Urobilinogen,Urine 0.2 mg/dL (Less than 2)
[2017-09-28 20:52] LABS: Anion Gap 9 meq/L (5-15); Blood Urea Nitrogen 17 mg/dL (7-18); Calcium 8.1 mg/dL (8.5-10.1); Carbon Dioxide 28.7 meq/L (21.0-32.0); Chloride 84 meq/L (98-107); Glomerular Filtration Rate 48 mL/min (>89); Glucose,Random 93 mg/dL (74-106); Potassium 3.6 meq/L (3.5-5.1)
[2017-09-28 20:55] LABS: Sodium 122 meq/L (136-145)
[2017-09-28 21:09] LABS: RBC,Urine 0-3 /hpf (0-3)
[2017-09-28 21:10] LABS: Amorphous Sediment,Urine Few /hpf; Bacteria,Urine Occasional /hpf; Squamous Epithelial Cell,Urine 0-5 /hpf (0-5)
[2017-09-28] MEDS ORDERED: Bisacodyl 10 MG Supp RECTAL PRN (21:11)
[2017-09-28] MEDS ORDERED: Acetaminophen 325 MG Tablet PO PRN (21:11)
[2017-09-28] MEDS: Heparin - SQ 10,000 UNITS/ML Vial SQ SCH (22:07)
[2017-09-29 06:35] LABS: Baso # (Auto) 0.1 th/mm3 (0.0-0.2); Baso % (Auto) 1.1 % (0.0-2.0); Eos # (Auto) 0.1 th/mm3 (0.0-0.4); Hemoglobin 12.1 gm/dL (11.6-15.3); Lymph # (Auto) 1.3 th/mm3 (1.0-4.8); Lymph % (Auto) 22.9 % (9.0-44.0); Mean Corpuscular HGB Conc 32.7 % (32.0-36.0); Mean Corpuscular Hemoglobin 31.2 pg (27.0-34.0); Mean Corpuscular Volume 95.4 fL (80.0-100.0); Mono # (Auto) 0.4 th/mm3 (0.0-0.9); Mono % (Auto) 7.4 % (0.0-8.0); Neut # (Auto) 3.7 th/mm3 (1.8-7.7); Neut % (Auto) 67.6 % (16.0-70.0); Platelet Count 84 th/mm3 (150-450); Red Blood Count 3.88 mil/mm3 (4.00-5.30); Red Cell Distribution Width 11.7 % (11.6-17.2); White Blood Count 5.6 th/mm3 (4.0-11.0)
[2017-09-29 06:46] LABS: Potassium 3.7 meq/L (3.5-5.1)
[2017-09-29 06:51] LABS: Carbon Dioxide 27.6 meq/L (21.0-32.0)
[2017-09-29 07:41] LABS: Platelet Morphology Normal (Normal)
[2017-09-29] MEDS: Senna/Docusate Sodium 8.6/50 MG Tablet PO SCH ×2 (08:33→20:02)
--- NOTE | 2017-09-29 08:41 | XR ---
EXAM DATE: 09/29/2017 8:34 AM EDT AGE/SEX: 77 years / Female INDICATIONS: . Weakness, dizzy and light headed CLINICAL DATA: This is the patient's subsequent encounter. Patient reports that signs and symptoms h ave been present for 2 days and indicates a pain score of 0/10. MEDICAL/SURGICAL HISTORY: Carcinoma, breast. Asthma. Hypertension. . Cholecystectomy. Hystere ctomy. Lumpectomy COMPARISON: [facility], CHEST PA & LAT, 08/05/2017. . FINDINGS: Frontal and lateral views of the chest demonstrate a normal-sized cardiac silhouette with calcificati on of the aorta and tortuous descending thoracic aorta. Lungs remain hyperinflated with flattening of the hemidiaphragms. No pneumothorax, pleural effusion, or airspace consolidation is identified. Nodu lar density overlying the right lower lung zone on the frontal projection represents a nipple shadow. The bones and soft tissues demonstrate no acute finding. CONCLUSION: Stable chest x-ray without an acute abnormality identified. The hyperinflation suggests obstructive a irways disease. Electronically signed by: Cuaet Beasley MD 09/29/2017 8:40 AM EDT
--- NOTE | 2017-09-29 09:52 | P.HP ---
History of Present Illness Primary Care Physician: Rajni Patel Chief Complaint: Weakness History of Present Illness: 77-year-old female with known history of hypertension, hyperlipidemia , coronary disease, hypothyroidism, chronic objective pulmonary disease who presented to the hospital because a 2 day history of progressive weakness. Patient states that she normal state of health until about a week ago when she went to her prior medical doctor's office and they notified her that she was having signs of dehydration and needed to increase her p.o. intake of fluids. Patient states that she is not drinking too big things of water extra than she was drinking previously. Then 2 days ago she started developing generalized weakness. She is having worse problems with ambulation for her granddaughter brought to the hospital for evaluation. Patient found to have multiple etiologies to include hyponatremia, urinary tract infection. Is recommended by ER physician the patient be observed in the hospital for further evaluation and management. Patient denies any headache, visual disturbances, unilateral weakness, paresthesia, chest pain, shortness of breath, dyspnea. At the time of seeing the patient this morning she is doing quite well. States that she does feel better. Patient is very eager to go home and was hoping be able to go home today. I discussed with her that we will need to continue monitor sodium level and if it improves appropriately then we will be able to discharge her. - Diagnosis (1) Weakness (2) Hyponatremia (3) Urinary tract infection Review of Systems All other systems reviewed negative except as stated in HPI Neurologic: Reports weakness PMFSH - History History Provided By: Patient - Medical History Medical History: Medical History (Last Updated 09/29/17 @ 10:26 by NILS Quijano) Anxiety Asthma Chronic back pain Chronic obstructive pulmonary disease Coronary artery disease Heart attack History of breast cancer History of myocardial infarction History of tobacco use Hx of intestinal obstruction Hyperlipidemia Hypertension - Surgical History Surgical History: Surgical History (Last Updated 09/29/17 @ 10:27 by NILS Quijano) H/O: hysterectomy History of appendectomy History of intestinal surgery History of tonsillectomy S/P breast lumpectomy S/P cholecystectomy - Family History Family History: Family History (Last Updated 09/29/17 @ 10:27 by NILS Quijano) Mother History of myocardial infarction Father History of aneurysm - Tobacco History Second Hand Smoke Exposure: No Tobacco Use In Past 30 Days: No Smoking Status: Former smoker Tobacco Type: Cigarettes Number of Pack Years (if former smoker): 45 - Alcohol History How Often Do You Have a Drink Containing Alcohol: Never - Substance Use History Substance History: No History of Abuse - Travel History Recent Travel in the [place] Within the Last 8 Weeks: No Recent Travel Out of the Country Within the Last 8 Weeks: No - Immunization History Tetanus Immunization: Unsure Hx Influenza Vaccine This Season: Yes Medications and Allergies Active Medications: Active Medications Acetaminophen (Tylenol) 650 mg PO Q4H PRN PRN Reason: Temp > 100.4 Al Hydroxide/Mg Hydroxide (Milk Of Magnesia Liq) 30 ml PO Q12H PRN PRN Reason: Mild Constipation Albuterol (Ventolin Hfa Inh) 2 puff INH Q4H PRN PRN Reason: SHORTNESS OF BREATH/WHEEZING Aspirin (Aspirin Chew) 81 mg PO DAILY [facility] Bisacodyl (Dulcolax Supp) 10 mg RECTAL DAILY PRN PRN Reason: SEVERE CONSITIPATION Guaifenesin (Mucinex Er) 600 mg PO BID [facility] Heparin Sodium (Porcine) (Heparin Inj) 5,000 units SQ Q12H [facility] Last Admin: 09/28/17 22:07 Dose: 5,000 units Ceftriaxone Sodium 1,000 mg/ (Sodium Chloride) 100 mls @ 200 mls/hr IV.SIG Q24H [facility] Lactulose (Lactulose Liq) 30 ml PO DAILY PRN PRN Reason: SEVERE CONSITIPATION Non-Formulary Medication (Levothyroxine [Levothyroxine]) 100 mcg PO DAILY [facility] Ondansetron HCl (Zofran Inj) 4 mg IV.PUSH Q6H PRN PRN Reason: NAUSEA OR VOMITING Pantoprazole Sodium (Protonix) 40 mg PO DAILY [facility] Pravastatin Sodium (Pravachol) 20 mg PO DAILY [facility] Senna/Docusate Sodium (Leslie-Colace) 1 tab PO BID [facility] Last Admin: 09/29/17 08:33 Dose: Not Given Sennosides (Senokot) 17.2 mg PO Q12H PRN PRN Reason: Moderate Constipation Sodium Chloride (Ns Flush) 2 ml IV.FLUSH PRN PRN PRN Reason: FLUSH AFTER USING IV ACCESS Allergies Allergy/AdvReac Type Severity Reaction Status Date / Time morphine Allergy Severe rash Verified 09/28/17 21:56 Home Medications Medication Instructions Recorded Confirmed Type albuterol sulfate 2 puff INHALATION Q4-6H PRN 09/28/17 09/28/17 History aspirin 81 mg PO DAILY 09/28/17 09/28/17 History diltiazem HCl 240 mg PO DAILY 09/28/17 09/28/17 History fluticasone-salmeterol [Advair HFA] 2 puff INHALATION Q12H 09/28/17 09/28/17 History levothyroxine 100 mcg PO DAILY 09/28/17 09/28/17 History lisinopril-hydrochlorothiazide 1 tab PO DAILY 09/28/17 09/28/17 History pantoprazole 40 mg PO DAILY 09/28/17 09/28/17 History pravastatin 20 mg PO DAILY 09/28/17 09/28/17 History Exam Vital signs: Vital Signs 09/28/17 17:50 09/28/17 19:30 09/28/17 20:06 Temperature 97.6 F Pulse Rate 70 78 76 Respiratory Rate 22 16 Blood Pressure 163/84 H 146/76 H Pulse Oximetry 93 L 96 09/28/17 21:07 09/29/17 00:00 09/29/17 08:00 Temperature 96.4 F L 97.2 F L Pulse Rate 58 L 62 Respiratory Rate 18 18 Blood Pressure 138/66 126/63 Pulse Oximetry 96 95 96 Intake & Output 09/28/17 09/29/17 09/29/17 18:59 06:59 18:59 Intake Total 1340 / 1340 Output Total 200 / 200 Balance 1140 / 1140 Weight 42.5 kg 43.5 kg Intake: IV 1100 / 1100 NS Inj 1,000 ML @ Wide Open IV. 1000 / 1000 SIG BOLUS ONE Rx#:[id number] Rocephin Inj 1,000 MG In NS Inj 100 / 100 100 ML @ 200 mls/hr IV.SIG ONCE ONE Rx#:[id number] Oral 240 / 240 Output: Urine 200 / 200 Other: # Voids 2 Weight On Admission 43.5 kg Results - Labs CBC & Chem 7: 09/29/17 06:10 09/29/17 06:10 Labs: Laboratory Results - last 24 hr 09/28/17 09/28/17 09/28/17 19:30 19:30 19:55 CBC w Diff Slide review pending WBC 5.3 RBC 3.88 L Hgb 12.3 Hct 36.7 MCV 94.7 MCH 31.8 MCHC 33.6 RDW 11.9 Plt Count 99 L MPV 11.3 H Neut % (Auto) 69.6 Lymph % (Auto) 19.1 [place] % (Auto) 8.4 H Eos % (Auto) 1.7 Baso % (Auto) 1.2 Neut # (Auto) 3.7 Lymph # (Auto) 1.0 [place] # (Auto) 0.4 Eos # (Auto) 0.1 Baso # (Auto) 0.1 WBC Differential . Diff Scan Auto diff confirmed Differential Comment . Platelet Estimate Low L Platelet Morphology Enlarged H Sodium 122 L* Potassium 3.6 Chloride 84 L Carbon Dioxide 28.7 Anion Gap 9 BUN 17 Creatinine 1.10 H Estimated GFR 48 L Random Glucose 93 Calcium 8.1 L Troponin I Less than 0.02 L Urine Color Yellow Urine Clarity Clear Urine pH 6.0 Ur Specific [place] 1.020 Urine Protein Negative Urine Glucose (UA) Negative Urine Ketones Trace H Urine Occult Blood Negative Urine Nitrate Negative Urine Bilirubin Negative Urine Urobilinogen 0.2 Ur Leukocyte Esterase Large H Urine RBC 0-3 Urine WBC 9-20 H Urine WBC Clumps Few H Ur Squamous Epith Cells 0-5 Ur Renal Epithelial Cell 1-5 H Amorphous Sediment Few H Urine Bacteria Occasional H Micro UA Comment Culture indicated Urine Culture Comments Culture indicated 09/29/17 09/29/17 06:10 06:10 CBC w Diff Slide review pending WBC 5.6 RBC 3.88 L Hgb 12.1 Hct 37.0 MCV 95.4 MCH 31.2 MCHC 32.7 RDW 11.7 Plt Count 84 L MPV 10.0 Neut % (Auto) 67.6 Lymph % (Auto) 22.9 [place] % (Auto) 7.4 Eos % (Auto) 1.0 Baso % (Auto) 1.1 Neut # (Auto) 3.7 Lymph # (Auto) 1.3 [place] # (Auto) 0.4 Eos # (Auto) 0.1 Baso # (Auto) 0.1 WBC Differential . Diff Scan Auto diff confirmed Differential Comment . Platelet Estimate Low L Platelet Morphology Normal Sodium 125 L Potassium 3.7 Chloride 89 L Carbon Dioxide 27.6 Anion Gap 8 BUN 15 Creatinine 1.00 Estimated GFR 54 L Random Glucose 82 Calcium 8.0 L Troponin I Urine Color Urine Clarity Urine pH Ur Specific [place] Urine Protein Urine Glucose (UA) Urine Ketones Urine Occult Blood Urine Nitrate Urine Bilirubin Urine Urobilinogen Ur Leukocyte Esterase Urine RBC Urine WBC Urine WBC Clumps Ur Squamous Epith Cells Ur Renal Epithelial Cell Amorphous Sediment Urine Bacteria Micro UA Comment Urine Culture Comments - Imaging Impressions Head CT 09/28/17 18:51 CONCLUSION: 1. Negative noncontrast CT brain. . Chest X-Ray 09/29/17 00:00 CONCLUSION: Stable chest x-ray without an acute abnormality identified. The hyperinflation suggests obstructive airways disease. Caprini VTE Risk Assessment Caprini VTE Risk Assessment: Moderate/High Risk (score >= 2) Caprini Risk Assessment Model: Point Value = 1 Point Value = 2 Point Value = 3 Point Value = 5 Age 41-60 Minor surgery BMI > 25 kg/m2 Swollen legs Varicose veins or History of unexplained or recurrent spontaneous Oral contraceptives or hormone replacement Sepsis (< 1 month) Serious lung disease, including pneumonia (< 1 month) Abnormal pulmonary function Acute myocardial infarction Congestive heart failure (< 1 month) History of inflammatory bowel disease Medical patient at bed rest Age 61-74 Arthroscopic surgery Major open surgery (> 45 min) Laparoscopic surgery (> 45 min) Malignancy Confined to bed (> 72 hours) Immobilizing plaster cast Central venous access Age >= 75 History of VTE Family history of VTE Factor V Leiden Prothrombin [id number] Lupus anticoagulant Anticardiolipin antibodies Elevated serum homocysteine Heparin-induced thrombocytopenia Other congenital or acquired thrombophilia Stroke (< 1 month) Elective arthroplasty Hip, pelvis, or leg fracture Acute spinal cord injury (< 1 month) Prophylaxis Regimen: Total Risk Factor Score Risk Level Prophylaxis Regimen 0-1 Low Early ambulation 2 Moderate Order ONE of the following: *Sequential Compression Device (SCD) *Heparin 5000 units SQ BID 3-4 Higher Order ONE of the following medications: *Heparin 5000 units SQ TID *Enoxaparin/Lovenox 40 mg SQ daily (WT < 150 kg, CrCl > 30 mL/min) *Enoxaparin/Lovenox 30 mg SQ daily (WT < 150 kg, CrCl > 10-29 mL/min) *Enoxaparin/Lovenox 30 mg SQ BID (WT < 150 kg, CrCl > 30 mL/min) AND/OR *Sequential Compression Device (SCD) 5 or more Highest Order ONE of the following medications: *Heparin 5000 units SQ TID (Preferred with Epidurals) *Enoxaparin/Lovenox 40 mg SQ daily (WT < 150 kg, CrCl > 30 mL/min) *Enoxaparin/Lovenox 30 mg SQ daily (WT < 150 kg, CrCl > 10-29 mL/min) *Enoxaparin/Lovenox 30 mg SQ BID (WT < 150 kg, CrCl > 30 mL/min) AND *Sequential Compression Device (SCD) Assessment and Plan - Assessment (1) Weakness Code(s): R53.1 - Weakness Status: Acute (2) Hyponatremia Code(s): E87.1 - Hypo-osmolality and hyponatremia Status: Acute (3) Urinary tract infection Code(s): N39.0 - Urinary tract infection, site not specified Status: Acute - Plan 77-year-old female who presented to the hospital because of generalized weakness found to have urinary tract infection, hyponatremia Hyponatremia -Could be secondary to multiple reasons to include recent increase in fluid intake as recommended by her primary doctor as well as HCTZ diuretic -Check chest x-ray, osmolality studies, TSH, cortisol level -Continue fluid restriction -Continue monitor sodium level Urinary tract infection -Continue Rocephin -Continue monitor culture for appropriate antibiotics Generalized weakness -Likely secondary to the above -Physical therapy evaluation Hypertension, hypovolemia, coronary artery disease -Home medications were reviewed and continued appropriately Chronic obstructive pulmonary disease -May use O2 to maintain O2 sats greater than 80% -Duo nebs as needed Hypothyroidism -Replacement therapy has been continued levothyroxine 100 mcg daily -TSH 19.3. -With the patient's TSH being awaited could be contributing to the patient's hyponatremia -Increase to levothyroxine 125 mcg daily DVT prevention -Subcutaneous heparin (3) Urinary tract infection Qualifiers: Urinary tract infection type: site unspecified Hematuria presence: without hematuria Qualified Code(s): N39.0 - Urinary tract infection, site not specified
[2017-09-29 09:58] LABS: Albumin 3.7 g/dL (3.4-5.0)
[2017-09-29] MEDS ORDERED: Levothyroxine 100 MCG Tablet PO SCH (10:00)
[2017-09-29 10:02] LABS: Total Protein 6.7 g/dL (6.4-8.2)
[2017-09-29] MEDS: guaiFENesin 600 MG ER Tablet PO SCH ×2 (10:09→20:02)
[2017-09-29 10:10] LABS: Thyroid Stimulating Hormone 19.3 uIU/mL (0.358-3.740)
[2017-09-29] MEDS: Heparin - SQ 10,000 UNITS/ML Vial SQ SCH ×3 (10:11→21:22)
[2017-09-29 15:18] LABS: Free T4 (Free Thyroxine) 0.94 ng/dL (0.76-1.46)
--- NOTE | 2017-09-29 15:49 | ECG ---
Date Performed: 09/28/2017 Time Performed: 19:06:36 PTAGE: 77 years EKG: BASELINE ARTIFACT GENERALIZED LOW VOLTAGE NONSPECIFIC ST WAVE CHANGE POOR INITIAL ANTERIOR FORCES, WHICH MAY BE NORMAL VARIANT. IMPROVEMENT IN R FORCE IN V3 FIRST DEGREE AV BLOCK [place] INTERVAL Aden POSEY .22 ABNORMAL ECG Since PREVIOUS TRACING , no significant change noted PREVIOUS TRACIN08/05/2017 18.55 DOCTOR: Nicholas Stevens Interpretating Date/Time 09/29/2017 15:48:01
[2017-09-29] MEDS: Sodium Chloride 1 GM Tablet PO SCH (17:56)
[2017-09-29] MEDS: Sod Chloride 0.9% Inj 1,000 ML IV.CONT SCH (18:01)
[2017-09-30] MEDS: Sod Chloride 0.9% Inj 1,000 ML IV.CONT SCH (05:24)
[2017-09-30] MEDS ORDERED: Levothyroxine 125 MCG Tablet PO SCH (06:00)
[2017-09-30 06:25] LABS: Potassium 3.2 meq/L (3.5-5.1)
[2017-09-30 06:29] LABS: Calcium 8.2 mg/dL (8.5-10.1)
[2017-09-30 06:30] LABS: Carbon Dioxide 27.3 meq/L (21.0-32.0)
--- NOTE | 2017-09-30 07:43 | P.PN ---
Subjective Interval history: Patient seen and examined today for follow-up on hyponatremia. Patient doing much better. Sodium is improving. Patient concerned about her blood pressure. Some blood pressure medication was held yesterday secondary to hyponatremia, lower blood pressure. Blood pressure medication resumed today. Patient remains afebrile. Physical Exam Vital signs: Vital Signs 09/29/17 08:00 09/29/17 11:52 09/29/17 13:57 Temperature 97.2 F L 96.5 F L Pulse Rate 62 64 72 Respiratory Rate 18 18 Blood Pressure 126/63 129/66 Pulse Oximetry 96 95 09/29/17 15:54 09/29/17 20:00 09/30/17 00:00 Temperature 97.2 F L 97.1 F L 96 F L Pulse Rate 64 58 L 68 Respiratory Rate 18 20 20 Blood Pressure 142/67 H 142/69 H 153/88 H Pulse Oximetry 97 97 94 L 09/30/17 07:37 Temperature Pulse Rate 80 Respiratory Rate 19 Blood Pressure Pulse Oximetry Intake & Output 09/29/17 09/30/17 09/30/17 18:59 06:59 18:59 Intake Total 625 / 625 1700 / 1700 Balance 625 / 625 1700 / 1700 Weight 43 kg Intake: IV 1100 / 1100 NS Inj 1,000 ML @ 84 mls/hr IV. 1000 / 1000 CONT .[id number] EUGENIO Rx#: [id number] Rocephin Inj 1,000 MG In NS Inj 100 / 100 100 ML @ 200 mls/hr IV.SIG Q24H EUGENIO Rx#:[id number] Oral 625 / 625 600 / 600 Other: # Voids 4 6 Date of Last Bowel Movement 09/29/17 # Bowel Movements 1 Narrative: GENERAL: Well-developed, cachectic, in no acute distress. alert and orientated HEENT: Head is normocephalic without any lesions or masses noted. Facial features are symmetric. Eyes: Extraocular muscles are intact. Conjunctivae were clear. NECK: Supple without any masses. Trachea midline no deviation. No JVD, CARDIAC: Regular rhythm, regular rate. S1/S2 are heard. No murmurs gallops or rubs. LUNGS: Diminished breath sounds bilaterally. Clear to auscultation bilaterally. No wheeze, rhonchi or rales. No use of accessory muscles on inspiration or expiration. ABDOMEN: Soft, nontender. Nondistended. Bowel sounds heard in all 4 quadrants. No organomegaly or masses. Negative rebound, negative guarding EXTREMITIES: No edema, pulses are equal bilaterally. No cyanosis or clubbing NEUROLOGY: Mood and affect appear appropriate. Cranial nerves II through XII grossly intact. Moving all extremities, speech is clear Results - Labs CBC & Chem 7: 09/29/17 06:10 09/30/17 14:10 Laboratory Results - last 24 hr 09/29/17 09/29/17 09/29/17 06:10 09:09 09:09 WBC Differential . Diff Scan Auto diff confirmed Platelet Estimate Low L Platelet Morphology Normal Sodium Potassium Chloride Carbon Dioxide Anion Gap BUN Creatinine Estimated GFR Random Glucose Osmolality 258 L Calcium Total Bilirubin 1.0 Direct Bilirubin 0.4 H Indirect Bilirubin 0.6 AST 34 ALT 24 Alkaline Phosphatase 68 Total Protein 6.7 Albumin 3.7 TSH 19.300 H Free T4 Free T3 Cortisol Urine Osmolality Ur Random Sodium 09/29/17 09/29/17 09/29/17 09:09 10:00 10:00 WBC Differential Diff Scan Platelet Estimate Platelet Morphology Sodium Potassium Chloride Carbon Dioxide Anion Gap BUN Creatinine Estimated GFR Random Glucose Osmolality Calcium Total Bilirubin Direct Bilirubin Indirect Bilirubin AST ALT Alkaline Phosphatase Total Protein Albumin TSH Free T4 Free T3 Cortisol 24.7 Urine Osmolality 332 Ur Random Sodium 57 09/29/17 09/29/17 09/30/17 10:35 16:10 05:55 WBC Differential Diff Scan Platelet Estimate Platelet Morphology Sodium 121 L* 128 L Potassium 3.2 L Chloride 92 L Carbon Dioxide 27.3 Anion Gap 9 BUN 12 Creatinine 1.00 Estimated GFR 54 L Random Glucose 70 L Osmolality Calcium 8.2 L Total Bilirubin Direct Bilirubin Indirect Bilirubin AST ALT Alkaline Phosphatase Total Protein Albumin TSH Free T4 0.94 Free T3 Less than 0.50 L Cortisol Urine Osmolality Ur Random Sodium - Imaging Impressions Chest X-Ray 09/29/17 00:00 CONCLUSION: Stable chest x-ray without an acute abnormality identified. The hyperinflation suggests obstructive airways disease. Assessment and Plan - Assessment (1) Weakness Code(s): R53.1 - Weakness Status: Acute (2) Hyponatremia Code(s): E87.1 - Hypo-osmolality and hyponatremia Status: Acute (3) Urinary tract infection Code(s): N39.0 - Urinary tract infection, site not specified Status: Acute - Plan 77-year-old female who presented to the hospital because of generalized weakness found to have urinary tract infection, hyponatremia Hyponatremia -Could be secondary to multiple reasons to include recent increase in fluid intake as recommended by her primary doctor as well as HCTZ diuretic -Chest x-ray did not indicate any acute abnormality -Osmolality studies did indicate low serum osmolality and increased urine sodium -TSH level was high, adjusted medications -Cortisol level was normal -Continue fluid -Continue monitor sodium level Hypokalemia -Continue monitor and replete as needed urinary tract infection -Continue Rocephin -Continue monitor culture for appropriate antibiotics Generalized weakness -Likely secondary to the above -Physical therapy evaluation Hypertension, hypovolemia, coronary artery disease -Home medications were reviewed and continued appropriately Chronic obstructive pulmonary disease -May use O2 to maintain O2 sats greater than 80% -Duo nebs as needed Hypothyroidism -Replacement therapy has been continued levothyroxine 100 mcg daily -TSH 19.3. -With the patient's TSH being awaited could be contributing to the patient's hyponatremia -Increased to levothyroxine 125 mcg daily DVT prevention -Subcutaneous heparin Discharge Planning: Discharge home in stable condition Activity: Ad nancy. Diet: Healthy heart diet Medication per medication reconciliation Follow-up with primary medical doctor in 1 week (3) Urinary tract infection Qualifiers: Urinary tract infection type: site unspecified Hematuria presence: without hematuria Qualified Code(s): N39.0 - Urinary tract infection, site not specified
[2017-09-30 08:16] VITALS: RESP 18
[2017-09-30] MEDS ORDERED: Lisinopril 20 MG Tablet PO SCH (09:00)
[2017-09-30] MEDS ORDERED: dilTIAZem CD 240 MG Capsule PO SCH (09:00)
[2017-09-30] MEDS: guaiFENesin 600 MG ER Tablet PO SCH (09:15)
[2017-09-30] MEDS: Sodium Chloride 1 GM Tablet PO SCH (09:16)
[2017-09-30] MEDS: Senna/Docusate Sodium 8.6/50 MG Tablet PO SCH (09:17)
[2017-09-30] MEDS: Heparin - SQ 10,000 UNITS/ML Vial SQ SCH (09:18)
[2017-09-30 14:26] LABS: Potassium 3.2 meq/L (3.5-5.1)
[2017-09-30 14:28] LABS: Calcium 8.2 mg/dL (8.5-10.1)
[2017-09-30 15:41] VITALS: BP 135/68; PULSE 70; TEMP 96.9; O2SAT 96
== END 2017-09-30 16:38 | disposition home or self-care (01) ==
LOC: PHEDA 17:44 → PHED 17:44 → PH3 17:44
PROVIDERS: ADMIT Internal Medicine; ATTEND Internal Medicine